=== PATIENT | female | born 1960 | race Caucasian/White ===

== ENCOUNTER 2018-08-06 20:26 | Emergency (ER) | payer OTHER ==
[~2018-08-06] VITALS: Ht 162.6 cm; Wt 78.9 kg
[2018-08-06 20:41] VITALS: Ht 162.6 cm; Wt 78.9 kg
--- NOTE | 2018-08-06 21:33 | ERD ---
ER Documentation Chief Complaint Chief Complaint PALPITATIONS X4DAYS HPI The patient is a 58-year-old female, presenting to the ER because of palpitation for the last 4 days, complains of intermittent headache for the last 4 days, de nies fever, chills, neck pain, chest pain, dyspnea, abdominal pain, vomiting, dysuria, diarrhea. She has been seen by her physician who referred her to see gis engineer for further evaluation including Holter monitoring. She does not smoke nor drink Past medical history: History of CVA, Hypertension Past surgical history: Heart surgery but the details unclear ROS All systems reviewed and are negative except as per history of present illness. Medications Home Meds Reported Medications Atenolol* (Atenolol*) 25 Mg Tablet, 25 MG PO DAILY, #30 TAB 08/06/18 Aspirin Ec (Aspir 81) 81 Mg Tablet.dr, 81 MG PO BID, #30 TAB 08/06/18 Allergies Allergies: Coded Allergies: No Known Allergy (Unverified , 08/06/18) Physical Exam Vitals Vital Signs Date Temp Pulse Resp B/P (MAP) Pulse Ox O2 O2 Flow FiO2 Time Delivery Rate 08/06/18 98.0 91 16 132/68 96 Room Air 23:20 (89) 08/06/18 99.7 107 22 154/77 95 20:41 (102) Physical Exam Const: No acute distress. Head: Atraumatic. Eyes: Normal Conjunctiva. ENT: Normal External Ears, Nose and Mouth. Neck: Full range of motion. No meningismus. Resp: Clear to auscultation bilaterally. Cardio: Regular rate and rhythm. Abd: Soft, non distended, normal bowel sounds, non tender. Skin: No petechiae or rashes. Back: No midline or flank tenderness. Ext: No cyanosis, or edema. Neur: Awake and alert. No focal deficit Psych: Normal Mood and Affect. Result Diagram: 08/06/18220408/06/182204 Results 24 hrs Laboratory Tests Test 08/06/18 22:05 White Blood Count 5.6 10^3/ul Red Blood Count 4.14 10^6/ul Hemoglobin 12.7 g/dl Hematocrit 38.4 % Mean Corpuscular Volume 92.8 fl Mean Corpuscular Hemoglobin 30.7 pg Mean Corpuscular Hemoglobin Concent 33.1 g/dl Red Cell Distribution Width 13.2 % Platelet Count 171 10^3/UL Mean Platelet Volume 9.7 fl Immature Granulocytes % 0.200 % Neutrophils % 54.0 % Lymphocytes % 33.8 % Monocytes % 8.2 % Eosinophils % 3.4 % Basophils % 0.4 % Nucleated Red Blood Cells % 0.0 /100WBC Immature Granulocytes # 0.010 10^3/ul Neutrophils # 3.0 10^3/ul Lymphocytes # 1.9 10^3/ul Monocytes # 0.5 10^3/ul Eosinophils # 0.2 10^3/ul Basophils # 0.0 10^3/ul Nucleated Red Blood Cells # 0.0 10^3/ul Sodium Level 140 mmol/L Potassium Level 3.7 mmol/L Chloride Level 109 mmol/L Carbon Dioxide Level 26 mmol/L Anion Gap 5 Blood Urea Nitrogen 15 mg/dl Creatinine 0.63 mg/dl Est Glomerular Filtrat Rate mL/min > 60 mL/min Glucose Level 146 mg/dl Calcium Level 8.8 mg/dl Troponin I < 0.012 ng/ml Procedures/[place] [id number] Radiology Main Line: [phone] DIAGNOSTIC IMAGING REPORT Patient: ARTHUR PERRY : 1960 Age: 58 Sex: F MR #: [id number] DOS: 08/06/18 2153 Ordering MD: SERGIO HATCH MD Location: E/R Room/Bed: PROCEDURE: CT Head without. CLINICAL INDICATION: Headache. TECHNIQUE: The study was performed utilizing a multi-slice, multidetector CT scanner. Direct spiral 1 mm axial sections were obtained through the head without the use of intravenous contrast material. 1 or more of the following dose reduction techniques were utilized: Automated exposure control, adjustment of the mA and/or kV according to patient's size, iterative reconstruction technique. Coronal and sagittal reformations were obtained. The images were reviewed on a PACS workstation. DICOM images are available. RADIATION DOSE: CTDIvol: 38.84 mGy mGy DLP: 634.23 mGy.cm mGy-cm COMPARISON: No prior studies are available for comparison. FINDINGS: There is no intracranial hemorrhage, extra-axial fluid collection, mass lesion, midline shift or hydrocephalus. There is well-circumscribed encephalomalacia involving the lateral left temporal lobe, extending into the left parietal lobe, suggestive of remote prior left MCA distribution infarct. There is associated gliosis in the underlying white matter. The ventricles, sulci and cisterns are within normal limits. The white matter is unremarkable. The alvarez-white matter differentiation is preserved. The basal cisterns are patent. The midline structures are intact. The orbits, calvarium and extracranial soft tissues are normal in appearance. The visualized paranasal sinuses, mastoid air cells and middle ear cavities are normally aerated. IMPRESSION: 1. No acute intracranial abnormality. No intracranial hemorrhage, extra-axial fluid collection, mass lesion or hydrocephalous. 2. Remote left MCA distribution infarct. No CT evidence of acute infarct at this time. If clinical concern for acute infarct, MRI is recommended for fur ther evaluation. RPTAT: HGAS .Tyrese Herrera MD, MD Date Time Electronically viewed and signed by .Tyrese Herrera MD, MD on 08/06/2018 22:54 .S/ CC: SERGIO HATCH MD [phone] [place] [address] Radiology Main Line: [phone] DIAGNOSTIC IMAGING REPORT Patient: ARTHUR PERRY : 1960 Age: 58 Sex: F MR #: [id number] DOS: 08/06/18 2153 Ordering MD: SERGIO HATCH MD Location: E/R Room/Bed: PROCEDURE: XR Chest. CLINICAL INDICATION: Chest pain TECHNIQUE: Single frontal view of the chest was obtained COMPARISON: None FINDINGS: The heart and mediastinum are within normal limits. No discrete focal consolidation. There is no pleural effusion or pneumothorax. IMPRESSION: No acute cardiopulmonary process. RPTAT: PP Physician [place] Date Time Electronically viewed and signed by ho Alan Physician on 08/06/2018 22:26 rV/ CC: SERGIO HATCH MD [id number] EK:37p Read by emergency physician Rate/Rhythm: ST 108 beats/min QRS, ST, T-waves: No ST elevation, no T inversion, RBBB Impression: Abnormal EKG EK:16p Read by emergency physician Rate/Rhythm: NSR 93 beats/min QRS, ST, T-waves: No ST elevation, no T inversion, RBBB Impression: Abnormal EKG MEDICAL MAKING DECISION: The patient is a 58-year-old female, presenting with acute palpitation, resolved, acute cephalgia of unclear etiology. She is stable for o/p follow-up The differential diagnoses considered include but are not limited to acute coronary syndrome, acute myocardial infarction, pericarditis, pulmonary embolism, aortic dissection, pneumonia, pleural effusion, pneumothorax, GERD, chest wall pain. Departure Diagnosis: Primary Impression: Palpitations Additional Impression: Cephalgia Condition: Good Comments I discussed the findings with the patient. I advised the patient to follow-up with the primary physician in about 2-3 days, sooner if needed and return if any concern. Disclaimer: Inadvertent spelling and grammatical errors are likely due to EHR/dictation software use and do not reflect on the overall quality of patient care. Also, please note that the electronic time recorded on this note does not necessarily reflect the actual time of the patient encounter. SERGIO HATCH MD August 06, 2018 21:33
[2018-08-06 23:20] VITALS: BP 132/68; PULSE 91; RESP 16
[2018-08-06] MEDS ORDERED: ASPI-535 PO (23:29)
[2018-08-06] MEDS ORDERED: ATEN-51 PO (23:29)
== END 2018-08-06 23:20 | disposition home or self-care (01) ==
LOC: E/R 20:26 → MRI 23:20
DX: R00.2 Palpitations (principal); R40.2142 Coma scale, eyes open, spontaneous, at arrival to emergency department; R40.2362 Coma scale, best motor response, obeys commands, at arrival to emergency department; R40.2252 Coma scale, best verbal response, oriented, at arrival to emergency department; R51 Headache; I10 Essential (primary) hypertension; Z79.82 Long term (current) use of aspirin; Z86.73 Personal history of transient ischemic attack (TIA), and cerebral infarction without residual deficits
CPT/HCPCS: 36415; 70450; 71045; 80048; 84484; 85025; 93005